=== PATIENT | male | born 1945 | race Caucasian/White ===

== ENCOUNTER 2018-08-11 06:47 | Emergency (ER) | payer OTHER ==
[~2018-08-11] VITALS: Ht 188 cm; Wt 109.1 kg
[2018-08-11 06:52] VITALS: Ht 188 cm; Wt 109.1 kg
[2018-08-11] MEDS ORDERED: BUSPAR5 MG PO ×2 (06:53)
[2018-08-11] MEDS ORDERED: LISINOPRIL10 MG PO (06:53)
[2018-08-11] MEDS ORDERED: IBUPROFEN800 MG PO (06:53)
[2018-08-11] MEDS ORDERED: ROBAXIN500 MG PO (06:54)
[2018-08-11 07:40] LABS: BASOPHILS 0.3 % (0-2); EOSINOPHILS 3.8 % (0-7); HEMATOCRIT 44.2 % (42.0-54.0); HEMOGLOBIN 14.7 g/dL (13.5-17.5); IMMATURE GRANULOCYTES 0.3 % (0-5); LYMPHOCYTES 23.8 % (15-50); MCH 30.8 pg (26.0-34.0); MCHC 33.3 g/dL (31.0-37.0); MCV 92.7 fL (80.0-100.0); MEAN PLATELET VOLUME 11.8 fL (7.4-10.4); MONOCYTES 15.7 % (2-11); NEUTROPHILS 56.1 % (40-80); PLATELET COUNT 179 10x3/uL (130-400); RBC 4.77 10x6/uL (4.20-6.10); RDW 13.3 % (11.5-14.5)
[2018-08-11 07:46] LABS: APTT 34.7 SECONDS (22.8-39.4); INR 1.24 (0.85-1.17)
[2018-08-11 07:52] LABS: ALBUMIN 3.7 g/dL (3.4-5.0); ANION GAP 14.7 mmol/L (8-16); BILIRUBIN - TOTAL 0.52 mg/dL (0.2-1.3); CALCIUM 8.3 mg/dL (8.5-10.1); CARBON DIOXIDE 24.9 mmol/L (21.0-32.0); CREATININE - SERUM 1.1 mg/dL (0.6-1.3); POTASSIUM - SERUM 3.6 mmol/L (3.5-5.1); PROTEIN - SERUM 7.2 g/dL (6.4-8.2)
[2018-08-11 08:30] VITALS: BP 152/68
== END 2018-08-11 08:31 | disposition home or self-care (01) ==
LOC: D.ER 06:47
PROVIDERS: Family Medicine
DX: L91.8 Other hypertrophic disorders of the skin (principal); R23.3 Spontaneous ecchymoses; I10 Essential (primary) hypertension; Z85.46 Personal history of malignant neoplasm of prostate